=== PATIENT | male | born 1985 | race Caucasian/White ===

== ENCOUNTER → 2021-10-07 | Outpatient (CLI) | payer OTHER ==
--- NOTE | 2021-10-08 02:49 | MR ---
EXAMINATION TYPE: MR lumbar spine wo con DATE OF EXAM: 10/07/2021 COMPARISON: 03/10/2021 HISTORY: Low back pain and numbness down left leg for 6 months Lumbar vertebra have normal alignment. Disc spaces are normal. Posterior elements are intact. Lumbar nerve roots appear normal. Neural foramina appear widely patent. There is no lumbar paraspinal mass. There is no bony destructive process. There is no evidence of lumbar disc herniation. IMPRESSION: Normal MRI scan of the lumbar spine. There is improvement in the posterior disc bulging at L5-S1 comp ared to old exam.
--- NOTE | 2021-10-08 03:06 | MR ---
EXAMINATION TYPE: MR shoulder RT wo con DATE OF EXAM: 10/07/2021 COMPARISON: None HISTORY: Right shoulder pain, weakness, and limited movement for 2 years Multiplanar multiecho imaging of the right shoulder without contrast. Biceps tendon is intact. There is wavy appearance of the subscapularis tendon. The AC joint is intact. There is minor spurring at the AC joint. No significant subacromial impingeme nt. Subscapularis tendon is intact. The infraspinatus tendon is intact. There is 2 cm cluster of cyst s at the posterior aspect of the shoulder joint adjacent to the posterior glenoid consistent with syn ovial cyst. There is no evidence of a fracture. Humeral head is intact. There is some thickening of the anterior glenoid labrum. IMPRESSION: There is tear of the subscapularis tendon. No evidence of tear of the supraspinatus tendon. Minor spu rring at the AC joint. Synovial septated cyst at the posterior shoulder joint. Tear of the anterior g lenoid labrum
== END | disposition home or self-care (01) ==
LOC: RADMRIMAIN 21:10
PROVIDERS: ATTEND Internal Medicine
DX: M51.27 Other intervertebral disc displacement, lumbosacral region (principal); M75.111 Incomplete rotator cuff tear or rupture of right shoulder, not specified as traumatic; M25.711 Osteophyte, right shoulder; M71.311 Other bursal cyst, right shoulder
CPT/HCPCS: 72148

== ENCOUNTER → 2021-11-04 | Outpatient (CLI) | payer OTHER ==
--- NOTE | 2021-11-05 02:33 | MR ---
EXAMINATION TYPE: MR cervical spine wo con DATE OF EXAM: 11/04/2021 COMPARISON: 03/10/2021 HISTORY: Numbness and tingling in both arms and hands. Multiplanar multi echo imaging of the lumbar spine without contrast. The vertebra have normal alignment. There is metal artifact from anterior fusion surgery from C5 to C 7. There is posterior disc herniation at C4-5. There is narrowing of the spinal canal. Spinal canal i s narrowed to 6 mm. There is a moderate posterior right side disc herniation at C7-T1 with right-side d neural foraminal impingement. There is small area of increased signal in the cervical cord at the C 6 level. There is no compression fracture. I see no focal bone destruction. IMPRESSION: There is posterior C4-5 cervical disc herniation increased slightly compared to old exam. Spinal jose l is narrowed to 6 mm. on previous exam canal measures 7 mm. There is a moderate sized posterior right side C7-T1 disc herniation with impingement on the spinal c anal and cervical cord. This appears increased compared to old exam. There is small area of focal myelomalacia at the C6 level unchanged.
== END | disposition home or self-care (01) ==
LOC: RADMRIMAIN 19:54
PROVIDERS: ATTEND Orthopaedic Surgery
DX: M50.13 Cervical disc disorder with radiculopathy, cervicothoracic region (principal); G95.89 Other specified diseases of spinal cord
CPT/HCPCS: 72141

== ENCOUNTER → 2021-11-11 | Outpatient (CLI) | payer OTHER ==
[2021-11-11 11:22] VITALS: BP 131/88; PULSE 70; RESP 18; TEMP 98.3
--- NOTE | 2021-11-11 11:56 | P.CON ---
Consult Note - . Consult date: 11/11/21 Assessment/Plan:: HISTORY OF PRESENT ILLNESS: 36 yr old male as a referral from Dr. Franks presents today with severe and chronic cervical pain with injury sustained in Sep 2020 injury secondary to spinal stenosis, neuroforaminal stenoses, facet arthropathy for evaluation. He states his neck pain is 6 out of 10 in intensity, localized to the mid to lower aspects of his cervical spine, sharp, constant pain with shooting pain to his bilateral shoulders. Pain is provoked with extension and rotation. Pain is relieved with medications, alternating ice and heat, PT completed 6 mo ago x 10 weeks, lidocaine patches, reclining and rest. PMH: ADD/ADHD, Behavioral disorder PSH: Cervical ACDF C5C7 SH: Negative x 3. and lives with spouse. FH: Noncontributory All: NKDA Meds: See list REVIEW OF ORGAN SYSTEMS: CONSTITUTIONAL: No fevers or chills. No recent weight loss. HEENT: No visual acuity loss, eye pain, difficulties with hearing. No nosebleeds. No difficulty swallowing. RESPIRATORY: Denies any troubles with breathing or dyspnea on exertion. CARDIOVASCULAR: Denies any chest pain, palpitations, or recent heart attacks. GASTROINTESTINAL: Denies fatty food intolerance. Has change in bowel habits and gas bloat. GENITOURINARY: Denies any blood in urine. Has increased urinary frequency. NEUROLOGICAL: + numbness and tingling along the distal extremities. No seizure disorders or headaches. MUSCULOSKELETAL: + back pain SKIN: No skin cancer. No rash. PSYCHIATRIC: Denies current depression or suicidal thoughts. ENDOCRINE: Denies current thyroid disorders. Denies any blood sugar glucose intolerance. HEME/LYMPHATIC: Denies any lumps and bumps around the neck. History of deep venous thrombosis. ALLERGY/IMMUNOLOGY: No immunoglobulin therapy. No immune deficiencies. BREAST: Denies current breast lumps, pain or nipple discharge. Physical Examinations : Constitutional : Cooperative , not in acute distress . HEENT: Neck supple. No Lymphadenopathy. Normal thyroid size . Eyes no ptosis , no icterus, no photophobia . Hearing intact. Normal oropharynx. No Thrush. Respiratory : Chest clear to auscultations bilaterally. No wheezing. No rhonchi. Cardiovascular : Regular rate and rhythm , S1 / S2. No S3 . No S4. Gastrointestinal : Abdomen soft. No tenderness. Bowel sounds x 4. No organomegaly . Genitourinary : Deferred. Neurologic : Cranial nerve II to XII intact. No focal neurological deficits. Psychiatric : alert & oriented x 3. Matching mood & appropriate affect. Judgment & insight intact. Lymphatic No Lymphadenopathy. Musculoskeletal : Cervical Spine Motor strength in the deltoid and biceps: Normal right side. Normal Left side Motor strength biceps and the wrist extensors: Normal right side . Normal left side Motor strength in the triceps muscle: Normal right side. Normal left side Deep tendon reflexes: Normal at the biceps. Normal at Brachioradialis. Normal at triceps Vertebral body tenderness to palpation over C4, C5, C6 Cervical facet loading test: positive bilaterally Spurling test: positive bilaterally Neck distraction test: positive bilate rally Sergio sign: positive bilaterally Lumbar spine Motor strength lower extremities ,thigh and legs 5/5 Right side , 5/5 Left side Deep tendon reflexes : Normal Knee Jerk. Normal Ankle Jerk Vertebral body tenderness over Lumbar facet Loading Test: positive Right / positive Left Range of motion of the lumbar spine Flexion 30 degrees, extension 10 degrees Straight Leg Raise test: Left/ Right positive at degree Son test: positive right / positive left. Severe tenderness over the Sacroiliac joint on the Right / Left sides Gaenslen test: positive bilaterally Seated flexion test: positive bilaterally. Imaging: MRI of the cervical spine without contrast from 03/10/21 reviewed MRI of the lumbar spine without contrast from 10/08/21 reviewed Assessment/ Plan : Cervical spondylosis Recommendation of CHUY C4-C5. May a day series of injections, up to 3 within a six-month period, for optimal pain relief. Risks, benefits of procedure discussed and patient verbalized understanding. Denies aspirin or anti- coagulant use or medical history of diabetes. All questions answered. I have spent greater than 50 minutes on patient care today. Dr Bradshaw was available by phone for the evaluation of this patient. The time was used to review the medical records including relevant urine studies and Prescription history (MAPs), review of the available imaging, evaluation and examination of the patient, coordination of care with the medical staff and if applicable referring physicians, as well as creation of the medical record PQRS Measure Charge Sheet Mode of Arrival: Ambulatory - Pain Location Bilateral Lower Neck Non-Pharmacological Interventions: Heat, Home Exercise, Inactivity, Physical Therapy Pharmacological Interventions: PRN Medication, Scheduled Medication, Topical Medication PQRS Narrative: Blood Pressure 131/88 Pain Intensity [Bilateral 6 Lower Neck] Scale Used Numeric (1 - 10) Hx Alcohol Use (MH) No Home Medications: Ambulatory Orders ARIPiprazole 11/11/21 Dextroamphetamine/Amphetamine [Adderall] 11/11/21 Doxepin [SINEquan] 11/11/21
== END ==
LOC: PNWHC3 10:45
PROVIDERS: ATTEND Specialist
DX: M47.812 Spondylosis without myelopathy or radiculopathy, cervical region (principal); F90.9 Attention-deficit hyperactivity disorder, unspecified type
CPT/HCPCS: 99211

== ENCOUNTER 2021-12-17 11:20 | Day surgery (SDC) | payer OTHER ==
[2021-12-16 09:58] VITALS: BMI 29.8
[~2021-12-17 11:20] MED LIST: LACTATED RINGERS 1,000 ML IV SCH; LIDOCAINE 1% (10MG/ML) FOR IV START INTRADERMA PRN
[2021-12-17 12:37] VITALS: TEMP 98
[2021-12-17] MEDS ORDERED: fentaNYL (PF) 50 MCG/ML 2 ML AMP ONE (13:20)
[2021-12-17] MEDS ORDERED: IOPAMIDOL M200 10 ML VIAL ONE (13:20)
[2021-12-17] MEDS ORDERED: MIDAZOLAM 2 MG/2 ML VIAL ONE (13:20)
[2021-12-17] MEDS ORDERED: DEXAMETHASONE SOD PHOSPHATE 10 MG/ML 1 ML VIAL ONE (13:20)
--- NOTE | 2021-12-17 13:35 | P.PCN ---
Date of Procedure: 12/17/21 Procedure(s) Performed: . PROCEDURE 1. Cervical epidural steroid injection under fluoroscopic guidance, C4-5 (fluoroscopy images available in the radiology department ) 2. Cervical epidurogram. PREOPERATIVE DIAGNOSIS: 1- Cervical herniated Disc Diseases 2- cervical spinal stenosis 3-cervical spondylosis with cervical Facet arthropathy without myelopathy POSTOPERATIVE DIAGNOSIS: : 1- Cervical herniated Disc Diseases , 2- Cervical spinal stenosis 3-,cervical spondylosis with cervical Facet arthropathy without myelopathy ANESTHESIA: Local anesthesia with lidocaine 1 % , and moderate sedation, with Versed 2 mg and Fentanyl 50 mcg. EBL 0 PROCEDURE INDICATION: The patient with neck pain and radiculitis unresponsive to conservative treatment consents for procedure. PROCEDURE DESCRIPTION / TECHNIQUE: The patient was seen and identified in the preoperative area. Risks, benefits, complications, including but not limited to infections ,bleeding , allergic reactions to the medications ,and not complete pain releife, and alternatives were discussed with the patient, the patient a greed to proceed with the procedure and signed the consent. Patient was taken to the OR and time out was completed. The patient was placed in the prone position on the procedure table. A pillow was placed under the patients chest to increase the cervical interlaminar space. The cervical area was prepped and draped in the usual sterile fashion. Vital signs were closely monitored during the procedure. Conscious sedation was used during the procedure to decrease patients anxiety. Using anterior-posterior fluoroscopy, the C4-5 interlaminar space was identified and the skin over this site was marked and then infiltrated with 1% lidocaine subcutaneously. Subsequently, a 20-gauge 3-1/2-inch Tuohy epidural needle was inserted and advanced toward the epidural space by means of the ``hanging-drop technique and guided by AP and lateral fluoroscopy. The correct needle position in the epidural space was verified with the injection of 2 mL of the water soluble contrast dye Isovue-200 and observing an excellent epidurogram with the epidural spread of the dye, after negative aspiration for blood and CSF and in the absence of paresthesias. then, mixture containing 20 mg Dexamethasone and 2 ml of preservative-free normal saline injected and a washout of epidurogram was seen. Needle was withdrawn intact, skin was cleansed, and bandages were applied. Complications= none. Disposition= patient was placed in supine position and transferred to the recovery room area in stable condition and there was no evidence of upper or lower extremity motor or sensory deficit after the procedure patient was discharged from recovery room after discharge criteria met and home discharge instructions was given by the staff and patient will follow with the pain clinic in 2-4 weeks
[2021-12-17] MEDS ORDERED: IV FLUID CONTINUATION 1,000 ML IV ONE (13:38)
[2021-12-17 13:45] VITALS: RESP 16
--- NOTE | 2021-12-17 13:48 | FL ---
Fluoroscopy INDICATION: Pain FINDINGS: Fluoroscopy time: 3 seconds. Images obtained: 1. IMPRESSIONS: 1. Documentation of fluoroscopy.
[2021-12-17 13:53] VITALS: BP 119/77; PULSE 81
== END 2021-12-17 14:10 | disposition home or self-care (01) ==
LOC: ORPAIN 11:20
PROVIDERS: ATTEND Specialist
DX: M50.221 Other cervical disc displacement at C4-C5 level (principal); M47.812 Spondylosis without myelopathy or radiculopathy, cervical region; M48.02 Spinal stenosis, cervical region
CPT/HCPCS: 62321; J2250; J1100; J3010; Q9966

== ENCOUNTER → 2021-12-30 | Outpatient (CLI) | payer OTHER ==
[2021-12-30 14:25] VITALS: BP 121/83; PULSE 78; RESP 18; TEMP 98.1
--- NOTE | 2021-12-30 14:42 | P.PAINPG ---
Objective - Vital Signs Vital signs: Vital Signs Temp 98.1 F 12/30/21 13:55 Pulse 78 12/30/21 13:55 Resp 18 12/30/21 13:55 BP 121/83 12/30/21 13:55 Pulse Ox 96 12/30/21 13:55 FiO2 Intake & Output 12/29/21 12/30/21 12/30/21 18:59 06:59 18:59 Weight 98.43 kg PQRS Measure Charge Sheet Mode of Arrival: Ambulatory Comment: A 36 yr old male with a history of severe and chronic low back pain secondary to lumbar degenerative disc diseases and lumbar spondylosis with facet arthropathy presents today for evaluation s/p CHUY C4-C5. He states he received 0% pain relief s/p procedure. Pain level is currently at 6/10 in intensity, localized at the base of his lower neck, sharp, constant & sore since September 2020 and after cervical fusion. Pain is provoked by being inactive for periods of 30 min or more. Pain is alleviated with medications (OTC meds), alternating heat & ice sometimes, PT 6 mo ago (20 sessions integrated w massage), lidoderm patches, icy hot topical, laying supine, repositioning and rest. Interventional pain procedures completed include CHUY C4-C5 Patient is currently on OTC meds Patient denies any side effects of the medication(s), denies excessive drowsiness or sleepiness, denies suicidal ideation and reports that the current pain medication is helping to control the pain and improve activities of daily living. Patient denies any motor or sensory deficits. Patient denies any fever or night sweats, denies any change in the bowel movements or urination. Physical Examination: -Constitutional: Cooperative. Not in acute distress . -HEENT: Neck is supple. No lymphadenopathy. No thyromegaly. Normal thyroid size. Eyes: No ptosis , no icterus, no photophobia. ENT: No auditory deficits. Normal oropharynx. No Thrush. - Respiratory: Chest clear to auscultations bilaterally. No wheezing. No rhonchi. - Cardiovascular: Regular rate and rhythm. S1 / S2 , no S3 , no S4. - Gastrointestinal: Abdomen soft no tenderness. Bowel sounds positive in all four quadrants. No organomegaly. - Genitourinary: Deferred. - Neurologic: Cranial nerve II to XII intact. No focal neurological deficits. - Psychatric: Alert & oriented x 3. Matching mood & appropriate affect. Judgment and insight intact. - Lymphatic: No Lymphadenopathy. - Musculoskeletal: Cervical spine: Muscle bulk/ tone/ strength in the bilateral upper extremities normal Vertebral body tenderness to palpation over C5, C6 Facet loading test positive Thoracic spine Muscle bulk / tone/ strength in the bilateral paraspinal muscles normal Vertebral body tender to palpation over Facet loading test positive Lumbar spine: Motor bulk/ tone/ strength lower extremities , thigh and legs : 5/5 Deep tendon reflexes : Normal Knee Jerk. Normal Ankle Jerk . Vertebral body tenderness to palpation over Lumbar Facet Loading Test positive Straight Leg Raise: positive at 30 degrees right side/ left side Gaenslen's Test positive Sacral spine : Severe tenderness over the Sacroiliac joint: right side / left side Range of motion: Flexion of the lumbar spine <60 degrees Range of motion: Extension of the lumbar spine <20 Gaenslen's Test positive Abram's Test positive Son test: positive right side / left side Thigh Thrust Test Sacral Thrust Test Assessment and plan: Chronic neck pain secondary to degenerative disc disease , spondylosis with facet arthropathy without myelopathy Recommendation of CHUY C5-C6. Pt did not exhibit sufficient pain relief with the aforementioned BENJAMIN but today exhibits rhodes tenderness to palpation over C5, C6. Risks, benefits of procedure discussed and pt verbalized understanding. Denies anticoagulant use or medical history of diabetes. All patient questions answered MAPS reviewed and it was appropriate. I have spent 31 minutes on patient care today. Dr Bradshaw was available by phone for the evaluation of this patient. The time was used to review the medical records including relevant urine studies and Prescription history (MAP s), review of the available imaging, evaluation and examination of the patient, coordination of care with the medical staff and if applicable referring physicians, as well as creation of the medical record - Pain Location Lower Medial Neck Non-Pharmacological Interventions: Heat, Ice, Massage, Physical Therapy, Position/Reposition, Stretching Pharmacological Interventions: Topical Medication PQRS Narrative: Blood Pressure 121/83 Pain Intensity [Lower Medial 6 Neck] Scale Used Numeric (1 - 10) Hx Alcohol Use (MH) No Home Medications: Ambulatory Orders ARIPiprazole 2 mg PO DAILY 11/11/21 Dextroamphetamine/Amphetamine [Adderall] 20 mg PO DAILY 11/11/21 Doxepin [SINEquan] 30 mg PO DAILY 11/11/21 Propranolol [Inderal] 20 mg PO BID 12/16/21 buPROPion [Wellbutrin] 300 mg PO DAILY 12/16/21 Controlled Substance Measures - Controlled Substance Measures Is patient prescribed a controlled substance at discharge?: No
== END ==
LOC: PNWHC3 13:50
PROVIDERS: ATTEND Specialist
DX: M51.36 Other intervertebral disc degeneration, lumbar region (principal); M47.816 Spondylosis without myelopathy or radiculopathy, lumbar region; G89.29 Other chronic pain
CPT/HCPCS: 99211

== ENCOUNTER 2022-02-09 08:01 | Day surgery (SDC) | payer OTHER ==
[2022-02-05 15:35] VITALS: BMI 30.7
[2022-02-09 08:32] VITALS: RESP 16; TEMP 97
[2022-02-09] MEDS ORDERED: MIDAZOLAM 2 MG/2 ML VIAL ONE (08:38)
[2022-02-09] MEDS ORDERED: IOPAMIDOL M200 10 ML VIAL ONE (08:38)
[2022-02-09] MEDS ORDERED: fentaNYL (PF) 50 MCG/ML 2 ML AMP ONE (08:38)
[2022-02-09] MEDS ORDERED: DEXAMETHASONE SOD PHOSPHATE 10 MG/ML 1 ML VIAL ONE (08:38)
--- NOTE | 2022-02-09 08:53 | P.PCN ---
Date of Procedure: 02/09/22 Procedure(s) Performed: PROCEDURE 1. Cervical epidural steroid injection under fluoroscopic guidance, C5-6 (fluoroscopy images available in the radiology department ) 2. Cervical epidurogram. PREOPERATIVE DIAGNOSIS: 1- Cervical herniated Disc Diseases 2- cervical spinal stenosis 3-cervical spondylosis with cervical Facet arthropathy without myelopathy POSTOPERATIVE DIAGNOSIS: : 1- Cervical herniated Disc Diseases , 2- Cervical spinal stenosis 3-,cervical spondylosis with cervical Facet arthropathy without myelopathy ANESTHESIA: Local anesthesia with lidocaine 1 % , and moderate sedation, with Versed 2 mg and Fentanyl 100 mcg. (sedation start time 08:40, end time 08:49 EBL 0 PROCEDURE INDICATION: The patient with neck pain and radiculitis unresponsive to conservative treatment consents for procedure. PROCEDURE DESCRIPTION / TECHNIQUE: The patient was seen and identified in the preoperative area. Risks, benefits, complications, including but not limited to infections ,bleeding , allergic reactions to the medications ,and not complete pain releife, and alternatives were discussed with the patient, the patient agreed to proceed with the procedure and signed the consent. Patient was taken to the OR and time out was completed. The patient was placed in the prone position on the procedure table. A pillow was placed under the patients chest to increase the cervical interlaminar space. The cervical area was prepped and draped in the usual sterile fashion. Vital signs were closely monitored during the procedure. Conscious sedation was used during the procedure to decrease patients anxiety. Using anterior-posterior fluoroscopy, the C5-6 interlaminar space was identified and the skin over this site was marked and then infiltrated with 1% lidocaine subcutaneously. Subsequently, a 20-gauge 3-1/2-inch Tuohy epidural needle was inserted and advanced toward the epidural space by means of the ``hanging-drop technique and guided by AP and lateral fluoroscopy. The correct needle position in the epidural space was verified with the injection of 2 mL of the water soluble contrast dye Isovue-200 and observing an excellent epidurogram with the epidural spread of the dye, after negative aspiration for blood and CSF and in the absence of paresthesias. then, mixture containing 20 mg Dexamethasone and 2 ml of preservative-free normal saline injected and a washout of epidurogram was seen. Needle was withdrawn intact, skin was cleansed, and bandages were applied. Complications= none. Disposition= patient was placed in supine position and transferred to the recovery room area in stable condition and there was no evidence of upper or lower extremity motor or sensory deficit after the procedure patient was discharged from recovery room after discharge criteria met and home discharge instructions was given by the staff and patient will follow with the pain clinic in 2-4 weeks
[2022-02-09] MEDS ORDERED: IV FLUID CONTINUATION 1,000 ML IV ONE (08:59)
--- NOTE | 2022-02-09 09:07 | FL ---
Fluoroscopy INDICATION: Pain FINDINGS: Fluoroscopy time: 2 seconds. Images obtained: 2. IMPRESSIONS: 1. Documentation of fluoroscopy.
[2022-02-09 09:16] VITALS: BP 122/76; PULSE 81
== END 2022-02-09 09:29 | disposition home or self-care (01) ==
LOC: ORPAIN 08:01
PROVIDERS: ATTEND Specialist
DX: M50.10 Cervical disc disorder with radiculopathy, unspecified cervical region (principal); M47.22 Other spondylosis with radiculopathy, cervical region; M48.02 Spinal stenosis, cervical region
CPT/HCPCS: 62321; J2250; J1100; J3010; Q9966

== ENCOUNTER → 2022-06-28 | Outpatient (CLI) | payer OTHER ==
--- NOTE | 2022-06-28 22:23 | MR ---
EXAMINATION TYPE: MR knee RT wo con DATE OF EXAM: 06/28/2022 COMPARISON: NONE HISTORY: Outer Right knee pain with locking and swelling for years, hx injuries. TECHNIQUE: Multiplanar, multisequence images of the knee is performed without IV contrast. FINDINGS: MEDIAL MENISCUS: Anterior and posterior horn are intact. LATERAL MENISCUS: Lateral bulging lateral meniscus coronal images Increased signal posterior horn is horizontal oblique component extending to the central body and articular surface sagittal image 28 . Adjacent 10 mm parameniscal cyst posteriorly coronal image 29 noted. CRUCIATE LIGAMENTS: The anterior and posterior cruciate ligaments are intact and unremarkable. COLLATERAL LIGAMENTS: The medial collateral ligament and lateral collateral ligament complex are inta ct and unremarkable. EXTENSOR MECHANISM: Visualized quadriceps and patellar tendons are intact. EFFUSION: No significant suprapatellar joint effusion. POPLITEAL CYST: Small size popliteal/shelton cyst. TRICOMPARTMENT SPACES: Tricompartment joint spaces are maintained. No significant spurring is seen. CARTILAGE: Tricompartmental articular cartilage is preserved. BONE MARROW SIGNAL: No focal abnormal marrow signal is appreciated. OTHER: No additional significant abnormality is appreciated. IMPRESSION: 1. Complex full-thickness tear lateral meniscus involves central body and posterior horn. 2. Small size popliteal cyst.
--- NOTE | 2022-06-28 22:30 | MR ---
EXAMINATION TYPE: MR knee LT wo con DATE OF EXAM: 06/28/2022 COMPARISON: NONE HISTORY: Outer Left knee pain with locking and swelling for 6 years, hx injuries. TECHNIQUE: Multiplanar, multisequence images of the knee is performed without IV contrast. FINDINGS: MEDIAL MENISCUS: Anterior and posterior horns are intact without tear. LATERAL MENISCUS: Horizontal oblique signal posterior horn sagittal images 6 through 9 has vertical c omponent extending to articular surface coronal image 27 for reference. Central body has increased si gnal extending to superior articular surface sagittal image 7 Anterior horn is intact. CRUCIATE LIGAMENTS: The anterior and posterior cruciate ligaments are intact and unremarkable. COLLATERAL LIGAMENTS: The medial collateral ligament and lateral collateral ligament complex are inta ct and unremarkable. EXTENSOR MECHANISM: Visualized quadriceps and patellar tendons are intact. EFFUSION: No significant suprapatellar joint effusion. POPLITEAL CYST: No popliteal/shelton cyst. TRICOMPARTMENT SPACES: Tricompartmental joint spaces are maintained. No significant spurring is seen. CARTILAGE: Tricompartmental articular cartilage is preserved. BONE MARROW SIGNAL: No focal abnormal marrow signal is appreciated. OTHER: No additional significant abnormality is appreciated. IMPRESSION: 1. Full-thickness tearing of the lateral meniscus involves the posterior horn and central body simila r to the opposite right knee.
== END | disposition home or self-care (01) ==
LOC: RADMRIMAIN 21:00
PROVIDERS: ATTEND Orthopaedic Surgery Sports Medicine
DX: S83.241A Other tear of medial meniscus, current injury, right knee, initial encounter (principal); S83.242A Other tear of medial meniscus, current injury, left knee, initial encounter; S83.281A Other tear of lateral meniscus, current injury, right knee, initial encounter; S83.282A Other tear of lateral meniscus, current injury, left knee, initial encounter; M71.21 Synovial cyst of popliteal space [Baker], right knee

== ENCOUNTER 2023-11-20 19:58 | Emergency (ER) | payer OTHER ==
[2023-11-20 20:10] VITALS: TEMP 98.1
--- NOTE | 2023-11-20 21:25 | ED ---
General Adult HPI - General Source: patient Mode of arrival: ambulatory Limitations: no limitations - History of Present Illness -: hour(s) Severity scale (1-10): 0 Consistency: constant Improves with: none Worsens with: none Associated Symptoms: denies other symptoms Treatments Prior to Arrival: none <Arpit Romo - Last Filed: 11/20/23 21:22> <Murtaza Gaona - Last Filed: 11/21/23 04:15> - General Chief complaint: Altered Mental Status Stated complaint: AMS Time Seen by Provider: 11/20/23 20:12 - History of Present Illness Initial comments: This patient is a 38-year-old man with history of bipolar disorder who is brought to have evaluation for suspected manic state. The patient's gives most of the history. She states that she found him sitting on the lawn more today just staring off. She states that this is similar behavior to previous bipolar episode. The patient does take psychiatric medicines and she thought he was compliant. Denies history of alcohol or street drug use. The patient denie s physical complaints. (Arpit Romo) - Related Data Home Medications Medication Instructions Recorded Confirmed ARIPiprazole 2 mg PO DAILY 11/11/21 02/09/22 Dextroamphetamine/Amphetamine 20 mg PO DAILY 11/11/21 02/09/22 [Adderall] Doxepin [SINEquan] 30 mg PO DAILY 11/11/21 02/09/22 Propranolol [Inderal] 20 mg PO BID 12/16/21 02/09/22 buPROPion [Wellbutrin] 300 mg PO DAILY 12/16/21 02/09/22 Previous Rx's Medication Instructions Recorded Cyclobenzaprine [Flexeril] 5 mg PO TID PRN #15 tablet 09/12/23 Ibuprofen [Motrin] 600 mg PO Q8HR PRN #20 tab 09/12/23 Allergies Allergy/AdvReac Type Severity Reaction Status Date / Time No Known Allergies Allergy Verified 11/20/23 20:03 Review of Systems ROS Other: All systems not noted in ROS Statement are negative. Constitutional: Denies: fever, weakness Eyes: Denies: vision change Respiratory: Denies: cough, dyspnea Cardiovascular: Denies: chest pain, edema, syncope Gastrointestinal: Denies: abdominal pain, nausea, vomiting Genitourinary: Denies: dysuria, hematuria Musculoskeletal: Denies: back pain Neurological: Denies: headache, weakness Psychiatric: Reports: other <Arpit Romo - Last Filed: 11/20/23 21:22> ROS Other: All systems not noted in ROS Statement are negative. <Murtaza Gaona - Last Filed: 11/21/23 04:15> ROS Statement: Those systems with pertinent positive or pertinent negative responses have been documented in the HPI. Past Medical History Past Medical History: Hypertension History of Any Multi-Drug Resistant Organisms: None Reported Additional Past Surgical History / Comment(s): NECK FUSION, PAIN CLINIC PROCEDURES Past Anesthesia/Blood Transfusion Reactions: No Reported Reaction Past Psychological History: ADD/ADHD, Anxiety, Depression, PTSD Smoking Status: Former smoker, Vaper Past Alcohol Use History: None Reported Past Drug Use History: None Reported - Past Family History Mother Family Medical History: No Reported History <Arpit Romo - Last Filed: 11/20/23 21:22> General Exam Limitations: no limitations General appearance: alert, in no apparent distress Head exam: Present: atraumatic, normocephalic Eye exam: Present: normal appearance. Absent: scleral icterus, conjunctival injection Neck exam: Present: normal inspection, full ROM Respiratory exam: Present: normal lung sounds bilaterally. Absent: respiratory distress, wheezes, rales, rhonchi, stridor, accessory muscle use Cardiovascular Exam: Present: regular rate, normal rhythm, normal heart sounds. Absent: systolic murmur, diastolic murmur, rubs, gallop GI/Abdominal exam: Present: soft. Absent: distended, tenderness, guarding, re bound, rigid, mass Extremities exam: Present: normal inspection, normal capillary refill. Absent: pedal edema, calf tenderness Back exam: Present: normal inspection Neurological exam: Present: alert. Absent: motor sensory deficit Psychiatric exam: Present: other (Patient has bizarre affect. He did voice some hyperreligious delusional thought content.) Skin exam: Present: warm, dry, intact, normal color. Absent: rash <Arpit Romo - Last Filed: 11/20/23 21:22> Course Vital Signs 11/20/23 11/20/23 20:00 23:03 Temperature 98.1 F Pulse Rate 64 Respiratory 18 18 Rate Blood Pressure 152/90 139/84 O2 Sat by Pulse 98 Oximetry Medical Decision Making - Lab Data Result diagrams: 11/20/23 21:43 11/20/23 21:43 <Murtaza Gaona N - Last Filed: 11/21/23 04:15> - Medical Decision Making Was pt. sent in by a medical professional or institution (, [facility], BUSINESS CENTER REPRESENTATIVE, urgent care, hospital, or [facility]...) When possible be specific @ -No Did you speak to anyone other than the patient for history (EMS, parent, family, police, friend...)? What history was obtained from this source @ -No Did you review nursing and triage notes (agree or disagree)? Why? @ -I reviewed and agree with nursing and triage notes Were old charts reviewed (outside hosp., previous admission, EMS record, old EKG, old radiological studies, urgent care reports/EKG's, [facility] records)? Report findings @ -No old charts were reviewed Differential Mental Health Depression, anxiety, bipolar, psychosis, schizophrenia, borderline personality, situational depression, adjustment disorder, behavioral disorder, brain tumor, malingering, substance abuse, encephalopathy, medication reaction, dementia, hypothyroidism, degenerative neurologic disorder, lupus.... This is not meant to be all-inclusive list EKG interpreted by me (3pts min.). @ -As above X-rays interpreted by me (1pt min.). @ -None done CT interpreted by me (1pt min.). @ -None done U/S interpreted by me (1pt. min.). @ -None done What testing was considered but not performed or refused? (CT, X-rays, U/S, labs)? Why? @ -None What meds were considered but not given or refused? Why? @ -None Did you discuss the management of the patient with other professionals (professionals i.e. [facility] Trinidad, BUSINESS CENTER REPRESENTATIVE, lab, RT, psych nurse, social science analyst, pumper gauger, teacher, real estate loan officer, welfare case worker)? Give summary @ -No Was smoking cessation discussed for >3mins.? @ -No Was critical care preformed (if so, how long)? @ -No Were there social determinants of health that impacted care today? How? (Homelessness, low income, unemployed, alcoholism, drug addiction, transportation, low edu. Level, literacy, decrease access to med. care, penitentiary, rehab)? @ -No Was there de-escalation of care discussed even if they declined (Discuss DNR or withdrawal of care, Hospice)? DNR status @ -No What co-morbidities impacted this encounter? (DM, HTN, Smoking, COPD, CAD, Cancer, CVA, ARF, Chemo, Hep., AIDS, mental health diagnosis, sleep apnea, morbid obesity)? @Bipolar depression Was patient admitted / discharged? Hospital course, mention meds given and route, prescriptions, significant lab abnormalities, going to OR and other pertinent info. @Patient was evaluated by Dr. Romo prior to shift change and was awaiting EPS evaluation. Patient was seen by EPS and had return to baseline without suicidal or homicidal ideation. Patient alert and oriented and felt to be safe for discharge. Undiagnosed new problem with uncertain prognosis? @ -No Drug Therapy requiring intensive monitoring for toxicity (Heparin, Nitro, Insulin, Cardizem)? @ -No Were any procedures done? @ -No Diagnosis/symptom? @ -[Bipolar Acute, or Chronic, or Acute on Chronic? @Acute on chronic Uncomplicated (without systemic symptoms) or Complicated (systemic symptoms)? @ -Default Side effects of treatment? @ -No Exacerbation, Progression, or Severe Exacerbation? @ -No Poses a threat to life or bodily function? How? (Chest pain, [place], [place], pneumonia, PE, COPD, DKA, ARF, appy, cholecystitis, CVA, Diverticulitis, Homicidal, Suicidal, threat to staff... and all critical care pts) @ -[Low risk at this time (Murtaza Gaona) - Lab Data Lab Results 11/20/23 11/20/23 11/21/23 Range/Units 21:43 21:43 03:04 WBC 5.6 (3.8-10.6) k/uL RBC 4.89 (4.30-5.90) m/uL Hgb 15.0 (13.0-17.5) gm/dL Hct 45.7 (39.0-53.0) % MCV 93.5 (80.0-100.0) fL MCH 30.7 (25.0-35.0) pg MCHC 32.8 (31.0-37.0) g/dL RDW 13.5 (11.5-15.5) % Plt Count 175 (150-450) k/uL MPV 8.0 Neutrophils % 47 % Lymphocytes % 42 % Monocytes % 6 % Eosinophils % 2 % Basophils % 1 % Neutrophils # 2.6 (1.3-7.7) k/uL Lymphocytes # 2.4 (1.0-4.8) k/uL Monocytes # 0.3 (0-1.0) k/uL Eosinophils # 0.1 (0-0.7) k/uL Basophils # 0.1 (0-0.2) k/uL Sodium 138 (137-145) mmol/L Potassium 4.5 (3.5-5.1) mmol/L Chloride 106 (98-107) mmol/L Carbon Dioxide 26 (22-30) mmol/L Anion Gap 6 mmol/L BUN 13 (9-20) mg/dL Creatinine 0.87 (0.66-1.25) mg/dL Est GFR (CKD-EPI)AfAm >90 (>60 ml/min/1.73 sqM) Est GFR (CKD-EPI)NonAf >90 (>60 ml/min/1.73 sqM) Glucose 91 (74-99) mg/dL Calcium 9.4 (8.4-10.2) mg/dL Total Bilirubin 0.6 (0.2-1.3) mg/dL AST 30 (17-59) U/L ALT 30 (4-49) U/L Alkaline Phosphatase 47 (38-126) U/L Total Protein 7.3 (6.3-8.2) g/dL Albumin 4.6 (3.5-5.0) g/dL TSH 1.070 (0.465-4.680) mIU/L Urine Color Colorless Urine Appearance Clear (Clear) Urine pH 6.0 (5.0-8.0) Ur Specific [place] 1.008 (1.001-1.035) Urine Protein Negative (Negative) Urine Glucose (UA) Negative (Negative) Urine Ketones Negative (Negative) Urine Blood Negative (Negative) Urine Nitrite Negative (Negative) Urine Bilirubin Negative (Negative) Urine Urobilinogen <2.0 (<2.0) mg/dL Ur Leukocyte Esterase Negative (Negative) Urine Opiates Screen Not Detected (NotDetected) Ur Oxycodone Screen Not Detected (NotDetected) Urine Methadone Screen Not Detected (NotDetected) Ur Barbiturates Screen Not Detected (NotDetected) U Tricyclic Antidepress Not Detected (NotDetected) Ur Phencyclidine Scrn Not Detected (NotDetected) Ur Amphetamines Screen Not Detected (NotDetected) U Methamphetamines Scrn Not Detected (NotDetected) U Benzodiazepines Scrn Not Detected (NotDetected) Urine Cocaine Screen Not Detected (NotDetected) U Marijuana (THC) Screen Not Detected (NotDetected) Disposition <Arpit Romo - Last Filed: 11/20/23 21:22> Is patient prescribed a controlled substance at d/c from ED?: No Time of Disposition: 04:15 <Murtaza Gaona - Last Filed: 11/21/23 04:15> Clinical Impression: Depression Disposition: HOME SELF-CARE Condition: Fair Instructions (If sedation given, give patient instructions): Depression (ED) Referrals: Valeri Ace DO [Primary Care Provider] - 1-2 days
[2023-11-20 21:54] LABS: Basophils # (A) 0.1 k/uL (0-0.2); Basophils % (A) 1 %; Eosinophils # (A) 0.1 k/uL (0-0.7); Eosinophils % (A) 2 %; HCT 45.7 % (39.0-53.0); Lymphocytes # (A) 2.4 k/uL (1.0-4.8); Lymphocytes % (A) 42 %; MCH 30.7 pg (25.0-35.0); MCHC 32.8 g/dL (31.0-37.0); MCV 93.5 fL (80.0-100.0); Monocytes # (A) 0.3 k/uL (0-1.0); Monocytes % (A) 6 %; Neutrophils # (A) 2.6 k/uL (1.3-7.7); Neutrophils % (A) 47 %; Platelet Count 175 k/uL (150-450); RBC 4.89 m/uL (4.30-5.90); RDW 13.5 % (11.5-15.5); WBC 5.6 k/uL (3.8-10.6)
[2023-11-20] MEDS: ZIPRASIDONE 20 MG VIAL IM STA (22:08)
[2023-11-20 22:14] LABS: ALT 30 U/L (4-49); AST 30 U/L (17-59); African American GFR (CKD) >90 (>60 ml/min/1.73 sqM); Albumin 4.6 g/dL (3.5-5.0); Alkaline Phosphatase 47 U/L (38-126); Anion Gap 6 mmol/L; Blood Urea Nitrogen 13 mg/dL (9-20); Calcium 9.4 mg/dL (8.4-10.2); Carbon Dioxide 26 mmol/L (22-30); Chloride 106 mmol/L (98-107); Glucose 91 mg/dL (74-99); Non-African American GFR(CKD) >90 (>60 ml/min/1.73 sqM); Potassium 4.5 mmol/L (3.5-5.1); Sodium 138 mmol/L (137-145); Total Bilirubin 0.6 mg/dL (0.2-1.3); Total Protein 7.3 g/dL (6.3-8.2)
[2023-11-21 03:11] LABS: Appearance,Urine Clear (Clear); Bilirubin,Urine Negative (Negative); Blood,Urine Negative (Negative); Color,Urine Colorless; Glucose,Urine (UA) Negative (Negative); Ketones,Urine Negative (Negative); Leukocyte Esterase,Urine Negative (Negative); Nitrite,Urine Negative (Negative); Protein,Urine Negative (Negative); Specific Gravity,Urine 1.008 (1.001-1.035); Urobilinogen,Urine <2.0 mg/dL (<2.0)
[2023-11-21 03:23] LABS: Amphetamine Screen,Urine Not Detected (NotDetected); Barbiturate Screen,Urine Not Detected (NotDetected); Benzodiazepines Screen,Urine Not Detected (NotDetected); Cocaine Screen,Urine Not Detected (NotDetected); Methadone Screen, Urine Not Detected (NotDetected); Opiate Screen,Urine Not Detected (NotDetected); Oxycodone Screen, Urine Not Detected (NotDetected); Phencyclidine Screen,Urine Not Detected (NotDetected); Tricyclic Antidepressant,Urine Not Detected (NotDetected); Urn Cannabinoid Scrn Not Detected (NotDetected)
[2023-11-21] MEDS: LORazepam 2 MG/ML INJ IV STA (03:41)
[2023-11-21 04:56] VITALS: BP 135/80; PULSE 75; RESP 19
== END 2023-11-21 04:29 | disposition home or self-care (01) ==
LOC: EC 19:58
DX: F32.A Depression, unspecified (principal); F17.290 Nicotine dependence, other tobacco product, uncomplicated
CPT/HCPCS: 36415; 80053; 84443; 85025; 81003; 80306; 99285; 96372; J3486

== ENCOUNTER → 2023-12-09 | Outpatient (CLI) | payer OTHER ==
[2023-12-09 15:37] LABS: Appearance,Urine Clear (Clear); Bilirubin,Urine Negative (Negative); Blood,Urine Negative (Negative); Color,Urine Dark Yellow (Yellow); Ketones,Urine Trace (Negative); Nitrite,Urine Negative (Negative); Specific Gravity,Urine 1.021 (1.001-1.030)
[2023-12-09 15:44] LABS: Basophils # (A) 0.04 X 10*3/uL (0.00-0.10); Eosinophils # (A) 0.07 X 10*3/uL (0.04-0.35); Eosinophils % (A) 1.8 %; HCT 47.5 % (39.6-50.0); HGB 15.3 g/dL (13.0-17.0); Lymphocytes # (A) 1.62 X 10*3/uL (0.90-5.00); Lymphocytes % (A) 42.2 %; MCH 30.5 pg (27.0-32.0); MCHC 32.2 g/dL (32.0-37.0); MCV 94.6 FL (80.0-97.0); Mean Platelet Volume 10.4 FL (9.5-12.2); Monocytes # (A) 0.18 X 10*3/uL (0.20-1.00); Monocytes % (A) 4.7 %; NRBC Per 100 WBC 0 X 10*3/uL (0.00-0.01); Neutrophils # (A) 1.92 X 10*3/uL (1.80-7.70); Platelet Count 187 X 10*3/uL (140-440); RBC 5.02 X 10*6/uL (4.40-5.60); RDW 13.3 % (11.5-14.5); WBC 3.84 X 10*3/uL (4.50-10.00)
[2023-12-09 16:11] LABS: ALT 48 U/L (10-49); AST 34 U/L (14-35); Albumin 4.8 g/dL (3.8-4.9); Albumin/Globulin Ratio 2.18 Ratio (1.60-3.17); Alkaline Phosphatase 62 U/L (41-126); Blood Urea Nitrogen 8.2 mg/dL (9.0-27.0); Calcium 9.5 mg/dL (8.7-10.3); Carbon Dioxide 26.9 mmol/L (21.6-31.8); Chloride 101 mmol/L (96-109); Globulin 2.2 g/dL (1.6-3.3); Glucose 98 mg/dL (70-110); Magnesium 2.2 mg/dL (1.5-2.4); Potassium 4.6 mmol/L (3.5-5.5); Sodium 138 mmol/L (135-145); T4, Free (Free Thyroxine) 1.37 ng/dL (0.80-1.80); Total Bilirubin 0.4 mg/dL (0.3-1.2)
[2023-12-12 13:33] LABS: Large VLDL Particle Number,NMR 10.2 nmol/L (<=2.7)
== END | disposition home or self-care (01) ==
LOC: LABWHC1 10:36
PROVIDERS: ATTEND Internal Medicine
DX: R00.2 Palpitations (principal); R44.1 Visual hallucinations; R44.0 Auditory hallucinations; R41.0 Disorientation, unspecified
CPT/HCPCS: 36415; 80053; 81003; 82607; 82746; 83036; 83704; 83735; 84439; 84443; 84481; 85025

== ENCOUNTER → 2023-12-16 | Outpatient (CLI) | payer OTHER ==
--- NOTE | 2023-12-17 14:47 | CA ---
Transthoracic Echo Report Name: Rakan Castellanos Age: 38 Gender: M : 1985 Exam Date: 12/16/2023 16:11 Exam Location: [facility] Ht (in): 71 Wt (lb): 222 Ordering Physician: Valeri Ace DO Attending/Referring Phys: Valeri Ace DO Information Coordinator Antonella Aranda RDCS Procedure CPT: Indications: 21 DAY R41.0 DISORIENTATION R00.2 PALPITATIONS Cardiac Hx: Technical Quality: Fair Contrast 1: Total Dose (mL): Contrast 2: Total Dose (mL): MEASUREMENTS (Male / Female) Normal Values 2D ECHO LV Diastolic Diameter PLAX 4.8 cm 4.2 - 5.9 / 3.9 - 5.3 cm LV Systolic Diameter PLAX 3.2 cm IVS Diastolic Thickness 1.2 cm 0.6 - 1.0 / 0.6 - 0.9 cm LVPW Diastolic Thickness 1.1 cm 0.6 - 1.0 / 0.6 - 0.9 cm LV Relative Wall Thickness 0.5 RV Internal Dim ED PLAX 3.1 cm LV Diastolic Volume MOD BP 145.5 cm??? 67 - 155 / 56 - 104 cm??? LV Systolic Volume MOD BP 62.3 cm??? 22 - 58 / 19 - 49 cm??? LV Ejection Fraction MOD BP 57.2 % >= 55 % LV Cardiac Index MOD BP 3332.3 cm???/min???m??? LV Diastolic Volume MOD 4C 147.2 cm??? LV Systolic Volume MOD 4C 72.0 cm??? LV Ejection Fraction MOD 4C 51.1 % LV Cardiac Index MOD 4C 3011.8 cm???/min???m??? LV Diastolic Length 4C 8.2 cm LV Systolic Length 4C 6.4 cm LV Diastolic Volume MOD 2C 131.3 cm??? LV Systolic Volume MOD 2C 50.7 cm??? LV Ejection Fraction MOD 2C 61.4 % LV Cardiac Index MOD 2C 3228.5 cm???/min???m??? LV Diastolic Length 2C 9.0 cm LV Systolic Length 2C 7.0 cm LA Volume 72.2 cm??? 18 - 58 / 22 - 52 cm??? LA Volume Index 31.8 cm???/m??? 16 - 28 cm???/m??? M-MODE Aortic Root Diameter MM 2.7 cm LA Systolic Diameter MM 3.7 cm LA Ao Ratio MM 1.4 AV Cusp Separation MM 2.0 cm DOPPLER AV Peak Velocity 139.3 cm/s AV Peak Gradient 7.8 mmHg AV Mean Velocity 109.9 cm/s AV Mean Gradient 5.2 mmHg AV Velocity Time Integral 32.6 cm LVOT Peak Velocity 162.9 cm/s LVOT Peak Gradient 10.6 mmHg LVOT Velocity Time Integral 30.9 cm MV Area PHT 2.3 cm??? Mitral E Point Velocity 85.5 cm/s Mitral A Point Velocity 51.9 cm/s Mitral E to A Ratio 1.6 MV Deceleration Time 332.1 ms MV E' Velocity 12.0 cm/s Mitral E to MV E' Ratio 7.1 FINDINGS Left Ventricle Mildly increased septal wall thickness. Mildly increased left ventricular systolic volume. Left ventricular ejection fraction is estimated at 50-55 %. Right Ventricle Normal right ventricular size and function. Right ventricular systolic pressure within normal limits. Right Atrium Normal right atrial size. Left Atrium Mildly increased left atrial volume. Mildly increased left atrial area. Mitral Valve Structurally normal mitral valve. No mitral stenosis. No evidence for mitral valve prolapse. Mild mitral regurgitation. Aortic Valve Trileaflet aortic valve. No aortic valve stenosis or regurgitation. Tricuspid Valve Structurally normal tricuspid valve. Mild tricuspid regurgitation. Pulmonic Valve Structurally normal pulmonic valve. Pericardium No pericardial effusion. Aorta Normal size aortic root and proximal ascending aorta. CONCLUSIONS Normal LV systolic function Previewed by: Dr. Louie Jones MD (Electronically Signed) Final Date: 17 December 2023 14:46
== END | disposition home or self-care (01) ==
LOC: RADECHMAIN 16:06
PROVIDERS: ATTEND Internal Medicine
DX: R41.0 Disorientation, unspecified (principal); R00.2 Palpitations
CPT/HCPCS: 93306

== ENCOUNTER → 2023-12-23 | Outpatient (CLI) | payer OTHER ==
--- NOTE | 2023-12-25 08:57 | MR ---
EXAMINATION TYPE: MR brain wo/w con DATE OF EXAM: 12/23/2023 9:32 PM CLINICAL INDICATION:Male, 38 years old with history of R44.0 AUDITORY HALLUCINATIONS R44.1 R41.0; PHH , Hallucinations, audio and visual impairment. COMPARISON: Angio same day TECHNIQUE: Multi planar, multi sequence imaging was performed through the brain including: T1, T2, In version recovery, susceptibility weighted imaging and gradient echo imaging and Diffusion weighted im aging. The patient was then given intravenous contrast and multi planar, T1 fat-saturation images wer e obtained. IV Contrast: 10 cc Gadavist FINDINGS: The navarrete-white junctions, ventricular system, basal cisterns appear unremarkable. Diffusion-weighted imaging shows no evidence of restricted diffusion to suggest acute/subacute infarct. Intracranial ar terial flow voids are maintained. Midline structures show no abnormality. The susceptibility weighted images do not reveal any evidence for micro-hemorrhage. After administration of gadolinium, no abnor mal enhancement is seen. The bone marrow signal is within normal limits. Paranasal sinuses and mastoid air cells: No significant paranasal sinus disease. Visualized orbits: Orbital contents are intact. IMPRESSION: No evidence of intracranial mass, acute/subacute infarct, or abnormal enhancement.
--- NOTE | 2023-12-25 09:02 | MR ---
EXAMINATION TYPE: MR angio head wo con DATE OF EXAM: 12/23/2023 9:05 PM CLINICAL INDICATION:Male, 38 years old with history of R44.0 AUDITORY HALLUCINATIONS R44.1 R41.0; PHH , Hallucinations, audio and visual impairment. COMPARISON: MRI brain same day Technical: 3-D [id number] Axial with MIP reconstruction created on a separate workstation.. IV Contrast: None cc Findings: Vertebral arteries: The vertebral arteries are patent. Vertebral arteries are: Codominant. Basilar artery: The basilar artery is intact. The basilar artery bifurcation is normal. Internal Carotid arteries: The cervical, petrous, cavernous and supraclinoid segments are normal. ALEXIS: Patent with no evidence of aneurysm. ACOM: Present without evidence of aneurysm. MCA: Patent with no evidence of aneurysm. VAULT CLERK: Patent with no evidence of aneurysm. origins of posterior cerebral arteries PCOM: Hypoplastic right normal left. The ophthalmic arteries are patent. IMPRESSION: No evidence of aneurysm or significant stenosis.
== END | disposition home or self-care (01) ==
LOC: RADMRIMAIN 20:45
PROVIDERS: ATTEND Nurse Practitioner Family
DX: R44.0 Auditory hallucinations (principal); R44.1 Visual hallucinations; R41.0 Disorientation, unspecified
CPT/HCPCS: 70544; 70553; A9585

== ENCOUNTER → 2024-01-04 | Outpatient (CLI) | payer OTHER ==
--- NOTE | 2024-01-30 12:31 | EM ---
EVENT MONITOR INDICATION: TIA. Underlying rhythm is sinus with an average heart rate of 72 beats per minute. Heart rate varied from 49 beats per minute to 120 beats per minute. Occasional PVCs are noted. CONCLUSION: This was a 21-day event monitor, of which only 14 days information had been obtained. In the provided strips, the patient is in sinus rhythm with occasional PVCs and a heart rate that varied from 49 beats per minute to 120 beats per minute. MMODL / IJN: [id number] /
== END | disposition home or self-care (01) ==
LOC: RADECHMAIN 07:46
PROVIDERS: ATTEND Internal Medicine
DX: I49.3 Ventricular premature depolarization (principal); R41.0 Disorientation, unspecified; R00.2 Palpitations
CPT/HCPCS: 93270